=== PATIENT | female | born 1985 | race Caucasian/White ===

== ENCOUNTER 2022-05-15 13:20 | Emergency (ER) | payer BC ==
[~2022-05-15] VITALS: Ht 165.1 cm; Wt 64.9 kg
[2022-05-15 13:24] VITALS: BP 148/97
[2022-05-15] MEDS ORDERED: TETRACAINE HCL/PF 0.5% OPTH 4 ML BTL OP ONE (13:55)
[2022-05-15] MEDS ORDERED: PROCHLORPERAZINE 10 MG/2 ML VIAL IM ONE (13:55)
--- NOTE | 2022-05-15 15:00 | NUR ---
37 Y/O FEMALE BIB SELF C/O CONSTANT THROBBING MEJIAS RADIATING TO THE FOREHEAD AND EYES, WITH C/O PHOTOSENSITIVITY AND INTERMITTENT DIZZINESS. DENIES ANY EYE PAIN, NECK PAIN, DENIES ANY TRAUMA/INJURY. PMH:DENIES NKDA
[2022-05-15] MEDS ORDERED: ACET-9496 PO (15:05)
[2022-05-15] MEDS ORDERED: ONDA-188 SL (15:05)
[2022-05-15] MEDS ORDERED: IMI50 PO (15:05)
--- NOTE | 2022-05-15 15:13 | NUR ---
Patient discharged with v/s stable. Written and verbal after care instructions ABOUT MIGRAINE given and explained. Patient alert, oriented and verbalized understanding of instructions. Ambulatory with steady gait. All questions addressed prior to discharge. ID band removed. Patient advised to follow up with PMD. Rx of EXCEDRIN EXTRA STRENGTH, IMITREX, ZOFRAN given. Patient educated on indication of medication including possible reaction and side effects. Opportunity to ask questions provided and answered.
== END 2022-05-15 15:13 | disposition home or self-care (01) ==
LOC: MED 13:20
DX: G43.909 Migraine, unspecified, not intractable, without status migrainosus (principal); H53.149 Visual discomfort, unspecified
CPT/HCPCS: 81025; 96372; 99283; J0780; Q0163